=== PATIENT | male | born 1960 | race Hispanic/Latino ===

== ENCOUNTER 2019-07-12 09:48 | Emergency (ER) | payer BC ==
[~2019-07-12] VITALS: Ht 167.6 cm; Wt 81.6 kg
--- OUTSIDE RECORDS SUMMARY | 2019-07-12 09:52 | XMS REPORT ---
Author [facility] Address Unknown Phone Unavailable Care Team Providers Care Optoelectronic Technician Name Role Phone Unavailable Unavailable Problems This patient has no known problems. Allergies, Adverse Reactions, Alerts This patient has no known allergies or adverse reactions. Medications This patient has no known medications. Encounters Start Date/Time End Date/Time Encounter Type Admission Type Attending [facility] Care Department Encounter ID 2017-09-02 00:00:00 2017-09-02 00:00:00 Outpatient [facility] [id number] 2017-08-26 00:00:00 2017-08-26 00:00:00 Outpatient [facility] [id number] 2017-08-13 00:00:00 2017-08-13 00:00:00 Outpatient [facility] [id number] 2017-07-23 10:24:16 2017-07-23 10:24:16 Outpatient [facility] [id number] 2017-07-23 09:57:18 2017-07-23 09:57:18 Outpatient [facility] [id number] 2017-07-23 08:15:58 2017-07-23 08:15:58 Outpatient [facility] [id number] 2017-04-21 21:31:12 2017-04-21 21:31:[address] [facility] [id number] 2017-01-04 13:43:08 2017-01-04 13:43:[address] [facility] [id number]
[2019-07-12] MEDS ORDERED: HYDRALAZINE HCL 20 MG/ML VIAL IV ONE (11:00)
[2019-07-12 11:17] LABS: BASOPHILS # (AUTO) 0.1 (0.0-0.1); BASOPHILS % 0.5 % (0.0-1.0); EOSINOPHILS # (AUTO) 0.2 (0.0-0.4); EOSINOPHILS % 2.2 % (0.0-6.0); HEMATOCRIT 45.7 % (38.2-49.6); HEMOGLOBIN 15.4 g/dL (14.0-18.0); LYMPHOCYTES # (AUTO) 2.6 (1.0-3.2); LYMPHOCYTES % 27.5 % (18.0-39.1); MEAN CORPUSCULAR HEMOGLOBIN 28.3 pg (28-32); MEAN CORPUSCULAR HGB CONC 33.7 g/dL (31-35); MONOCYTES # (AUTO) 0.8 (0.2-0.8); MONOCYTES % 8.7 % (4.4-11.3); NEUTROPHILS # (AUTO) 5.7 (2.1-6.9); NEUTROPHILS % 60.7 % (38.7-80.0); PLATELET COUNT 257 x10e3/uL (140-360); RED BLOOD COUNT 5.44 x10e6/uL (4.3-5.7)
[2019-07-12 11:19] LABS: BILIRUBIN,URINE NEGATIVE (NEGATIVE); CLARITY,URINE CLEAR (CLEAR); COLOR,URINE YELLOW (YELLOW); KETONES,URINE TRACE (NEGATIVE); LEUKOCYTE ESTERASE ,URINE NEGATIVE (NEGATIVE); NITRITE,URINE NEGATIVE (NEGATIVE); PROTEIN,URINE DIPSTICK NEGATIVE (NEGATIVE); URINE UROBILINOGEN 0.2 mg/dL (0.2 - 1)
[2019-07-12 11:26] LABS: AMPHETAMINES SCREEN,URINE NEGATIVE (NEGATIVE); BENZODIAZEPINES SCREEN,URINE NEGATIVE (NEGATIVE); PHENCYCLIDINE SCREEN,URINE NEGATIVE (NEGATIVE)
--- NOTE | 2019-07-12 11:29 | Diagnostic Imaging Report ---
Exam: Head CT without contrast History: Trauma, fall Comparison studies: None Technique: Axial images were obtained from the skull base to the vertex. Coronal and sagittal images reconstructed from the axial data. Dose modulation, iterative reconstruction, and/or weight based adjustment of the mA/kV was utilized to reduce the radiation dose to as low as reasonably achievable. Radiation dose: Total DLP: 1279 mGy*cm. Estimated effective dose: DLP x 0.015 Intravenous contrast: None Findings: Scalp: No abnormalities. Bones: No fractures, blastic or lytic lesions. Brain sulci: Mildly prominent. Ventricles: Normal in size and configuration. No hydrocephalus. Extra-axial spaces: No masses, no fluid collection. Parenchyma: No abnormal densities. No masses, acute hemorrhage, acute or chronic vascular insults. Sellar/suprasellar region: No abnormalities. Craniocervical junction: Patent foramen magnum. No Chiari one malformation. Included paranasal sinuses: Clear. Middle ear and included mastoid cavities: Clear. IMPRESSION: No acute abnormalities. Signed by: Dr. Chema Snider M.D. on 07/12/2019 11:25 AM
[2019-07-12 11:30] LABS: INR 0.8; PROTHROMBIN TIME 11.5 seconds (11.9-14.5)
[2019-07-12 11:31] LABS: PARTIAL THROMBOPLASTIN TIME 27.9 seconds (23.8-35.5)
--- NOTE | 2019-07-12 11:35 | Diagnostic Imaging Report ---
History: Trauma, fall Comparison studies: None Technique: Axial images were obtained through the cervical region. Coronal and sagittal images reconstructed from the axial data. Dose modulation, iterative reconstruction, and/or weight based adjustment of the mA/kV was utilized to reduce the radiation dose to as low as reasonably achievable. Intravenous contrast: None Findings: Fractures: None. Soft tissue injuries: None. Atlantoaxial articulation: Intact. Alignment: Mild reversal usual cervical lordotic curvature and mild dextro cervical curvature may be accentuated by patient position or possibly related muscles thousand. No subluxations. Cervicomedullary junction: No abnormalities. The foramen magnum is patent. Soft tissues: No gross acute abnormalities. Vertebrae: No fractures, infection or neoplasm. Degenerative changes: Multilevel disc degeneration; mild C4-C5 and at C5-C6 and moderate at C6-C7 with loss of disc height. Multilevel uncovertebral and facet arthrosis result in multilevel foraminal stenosis which is mild left at C2-C3, moderate left and mild right at C3-C4, moderate right and mild left C4-C5, moderate left and mild right at C5-C6, and moderate right at C6-C7. Severe facet arthrosis on the left at C3-C4. No significant canal stenosis. IMPRESSION: 1. No cervical spine fracture subluxation. 2. Multilevel degenerative changes as described. Ligament, spinal cord and or vascular abnormalities cannot be excluded on the basis of this examination Signed by: Dr. Chema Snider M.D. on 07/12/2019 11:32 AM
[2019-07-12 11:39] LABS: ALANINE AMINOTRANSFERASE 7 IU/L (0-55); ALBUMIN 3.7 g/dL (3.5-5.0); ALBUMIN/GLOBULIN RATIO 0.9 (0.8-2.0); ALKALINE PHOSPHATASE 121 IU/L (40-150); ANION GAP 15.9 mmol/L (8-16); BLOOD UREA NITROGEN 9 mg/dL (7-26); BUN/CREATININE RATIO 12 (6-25); CALCIUM 9.7 mg/dL (8.4-10.2); CARBON DIOXIDE 25 mmol/L (22-29); CHLORIDE 99 mmol/L (98-107); CREATINE KINASE 53 IU/L (30-200); CREATININE, SERUM 0.78 mg/dL (0.72-1.25); EST GLOMERULAR FILTRATION RATE > 60 ML/MIN (60-); GLUCOSE 316 mg/dL (74-118); POTASSIUM 3.9 mmol/L (3.5-5.1); SODIUM 136 mmol/L (136-145)
[2019-07-12 11:41] LABS: EPITHELIAL CELLS,URINE FEW /LPF
[2019-07-12 11:47] LABS: BACTERIA,URINE MODERATE /HPF
[2019-07-12] MEDS ORDERED: MECLIZINE HCL 12.5 MG TAB PO ONE (12:45)
== END 2019-07-12 13:30 | disposition home or self-care (01) ==
LOC: ER 09:48
DX: S00.83XA Contusion of other part of head, initial encounter (principal); W10.8XXA Fall (on) (from) other stairs and steps, initial encounter; Y93.01 Activity, walking, marching and hiking; Y99.0 Civilian activity done for income or pay; J01.90 Acute sinusitis, unspecified
CPT/HCPCS: 36415; 70450; 72125; 80053; 80307; 81001; 82550; 82553; 84484; 85025; 85610; 85730; 93005; 99284; J0360; J8597